=== PATIENT | female | born 1995 | race African-American/Black ===

== ENCOUNTER 2016-12-02 14:32 | Emergency (ER) | payer OTHER ==
[~2016-12-02] VITALS: Ht 152.4 cm; Wt 90.7 kg
--- NOTE | ~2016-12-02 | CR72 ---
[facility] A Service of [facility] & [facility] RADIOLOGY TEXT RESULTS PATIENT: ELENA WHITMORE LOCATION: [facility] : [birth year] UNIT #: [id number] AGE: [address]: Nat Joseph SEX: F ORDER DR: [id number] [facility] [address] [place], [place] [address] [id number] E MR#: [id number] Acc #: [id number] NAME: ELENA WHITMORE : 1995 SEX: F STUDY DATE/TIME: 12/02/2016 15:52 UNIT: [facility] ROOM: STUDY DESCRIPTION: CR Chest Single View Portable Attending Physician: Nat Joseph P.A.-C. Ordering Physician: Ector Galvan M.D. Primary Care Physician: Jose Wolf A.P.R.N. MEDICAL IMAGING REPORT This report is preliminary unless electronic signature is present EXAM AP radiograph of the chest HISTORY Chest pain. Symptoms began 2 days ago. Short of air. TECHNIQUE AP radiograph of the chest is presented. COMPARISON STUDIES No comparisons. FINDINGS The heart is [id number] limits of normal in size. Lungs are relatively low in volume but there is no evidence of acute pulmonary disease, pleural effusion or pneumothorax. There is no suspicious nodule. Bony structures are unremarkable. Dictated by... Daryl Graves M.D. THIS IS AN ELECTRONICALLY VERIFIED REPORT Daryl Graves M.D. at 12/05/2016 7:36 AM Anni TD: 12/02/2016 23:28 JOB #: [id number] MEDICAL IMAGING REPORT Page 1 of 1 COPY
--- NOTE | ~2016-12-02 | EKG ---
PATIENT: ELENA WHITMORE UNIT #: [id number] Ventricular Rate: 87 BPM Atrial Rate: 87 BPM P-R Interval: 160 ms QRS Duration: 78 ms Q-T Interval: 356 ms QTC Calculation(Bezet): 428 ms P Atlantic: 45 degrees Calculated R Atlantic: 27 degrees Calculated T Atlantic: 21 degrees Diagnosis Line: Normal sinus rhythm with sinus arrhythmia Diagnosis Line: Normal ECG Diagnosis Line: Diagnosis Line: Confirmed by BRAYAN CHÁVEZ MD ([id number]) on 12/03/2016 Diagnosis Line: 12:08:37 AM INTERPRETING MD: SAIRA GONSALEZ
[2016-12-02 15:36] LABS: BASOPHIL% 0.5 % (0-2.5); DIFF IND NO; EOSINOPHIL# 0.2 X10e3 (0-0.7); HEMATOCRIT 36.5 % (35.0-45.0); HEMOGLOBIN 11.8 gm/dL (12.0-16.0); LYMPHOCYTE% 25.5 % (17.0-45.0); MEAN CELL VOLUME 80.8 FL (83-96); MEAN CORPUSCULAR HEMOGLOBIN 26.1 PG (28-34); MEAN CORPUSCULAR HGB CONC 32.3 g/dL (30-36); MEAN PLATELET VOLUME 7.9 FL (6.5-11.5); MONOCYTE# 0.5 X10e3 (0-1.0); MONOCYTE% 6.2 % (3.0-12.0); NEUTROPHIL# 5.2 X10e3 (1.5-7.1); NEUTROPHIL% 65.8 % (40-75); PLATELET COUNT 347 X10e3 (140-420); RED BLOOD COUNT 4.52 X10e (3.90-5.30); RED CELL DISTRIBUTION WIDTH 14.5 % (11.0-15.5); WHITE BLOOD COUNT 7.9 X10e3 (4.0-10.5)
[2016-12-02 15:47] LABS: PARTIAL THROMBOPLASTIN TIME 31.5 SECONDS (23.5-31.3); PROTHROMBIN TIME (PATIENT) 10.7 SECONDS (10.0-11.7)
[2016-12-02 15:58] LABS: POC - CKMB <1.0 ng/mL (0.0-7.9); POC - TROPONIN <0.05 ng/mL (<=0.05)
[2016-12-02 16:20] LABS: ALBUMIN SERUM 3.5 g/dL (3.5-5.0); BILIRUBIN, DIRECT 0.1 mg/dL (0.0-0.2); BILIRUBIN,INDIRECT 0.4 mg/dL (0.0-0.9); BILIRUBIN,TOTAL 0.5 mg/dL (0.2-2.0); CALCIUM SERUM 8.9 mg/dL (8.4-10.2); CREATININE SERUM 0.8 mg/dL (0.6-1.4); GLOM FILT RATE Estimated 121.4 mL/min (>60); POTASSIUM 3.6 mmol/L (3.5-5.1); PROTEIN TOTAL SERUM 7.1 g/dL (6.0-8.3)
[2016-12-02 17:10] LABS: POC - CKMB <1.0 ng/mL (0.0-7.9); POC - TROPONIN <0.05 ng/mL (<=0.05)
== END 2016-12-02 17:49 | disposition home or self-care (01) ==
LOC: CED 14:32 → CFTX 14:32
PROVIDERS: Emergency Medicine; Physician Assistant
DX: R07.89 Other chest pain (principal); J45.909 Unspecified asthma, uncomplicated
CPT/HCPCS: 36415; 71010; 80048; 80076; 82553; 84484; 85025; 85379; 85610; 85730; 93005; 94640; 96374; 99285; J2930